=== PATIENT | male | born 1995 | race Two or more races ===

== ENCOUNTER 2019-12-10 09:29 | Day surgery (SDC) | payer OTHER ==
[2019-12-01 17:32] LABS: BASOPHILS # (AUTO) 0.1 X10'3 (0-0.2); BASOPHILS % (AUTO) 1.1 % (0-1); EOSINOPHILS # (AUTO) 0.1 X10'3 (0-0.9); EOSINOPHILS % (AUTO) 1.7 % (0-6); LYMPHOCYTES # (AUTO) 2.3 X10'3 (1.1-4.8); MEAN CORPUSCULAR HGB CONC 34.3 g/dL (33.0-36.5); MEAN CORPUSCULAR VOLUME 84.8 FL (78-98); MEAN PLATELET VOLUME 9.1 FL (7.4-10.4); MONOCYTES # (AUTO) 0.5 X10'3 (0-0.9); NEUTROPHILS # (AUTO) 5.2 X10'3 (1.8-7.7); NEUTROPHILS % (AUTO) 63.2 % (42-75); PRE OP HEMATOCRIT 47.2 % (42.0-52.0); PRE OP HEMOGLOBIN 16.2 g/dL (14.0-17.9); PRE OP PLATELET COUNT 350 X10'3 (140-440); RED BLOOD COUNT 5.57 X10'6 (4.70-6.10); RED CELL DISTRIBUTION WIDTH 13.9 % (11.5-14.5)
[2019-12-01 17:36] LABS: ALBUMIN 4.5 G/DL (3.4-5.0); ALBUMIN/GLOBULIN RATIO 1.2 (1.1-1.5); BLOOD UREA NITROGEN 6 MG/DL (7-18); BUN/CREATININE RATIO 6.4 (5.4-32.0); CALCIUM 9.6 MG/DL (8.5-10.1); CHLORIDE 100 MMOL/L (99-107); CREATININE 0.94 MG/DL (0.60-1.10); PRE OP ANION GAP 11 (8-16); PRE OP BILIRUB, TOTAL 0.7 MG/DL (0.0-1.0); PRE OP SODIUM 138 MMOL/L (135-145); TOTAL CARBON DIOXIDE 26.8 MMOL/L (24-32); TOTAL PROTEIN 8.3 G/DL (6.4-8.2); eGFR > 90 ML/MIN
[2019-12-01 17:37] LABS: PRE OP POTASSIUM 3.9 MMOL/L (3.4-5.1)
[2019-12-01 17:39] LABS: ALKALINE PHOSPHATASE 164 IU/L (46-116)
[2019-12-01 17:40] LABS: PRE OP ALT 345 U/L (30-65); PRE OP AST 151 U/L (10-37); PRE OP GLUCOSE 377 MG/DL (70-104)
[~2019-12-10] VITALS: Ht 188 cm; Wt 131.5 kg
[~2019-12-10 09:29] MED LIST: AMLO2.5T2 PO; LOSA50TA3 PO; METF-900 PO; [UNRECOGNIZED DRUG - CODE] PO; ceFAZolin inj. 3,000 MG in normal saline 100ml IV soln 100 ML IV ONE; famotidine 20mg tablet PO ONE; ringers solution, lacted 1,000 ML IV SCH
--- NOTE | 2019-12-10 11:02 | NUR ---
DR HERNÁNDEZ CANCELLED SURGERY DUE TO A BLOOD GLUCOSE OF 311. REMOVED IV. REVIEWED WRITTEN DISCHARGE INSTRUCTIONS AND PT VERBALIZED UNDERSTANDING.
== END 2019-12-10 11:11 | disposition home or self-care (01) ==
LOC: PAS 09:29
PROVIDERS: ATTEND Orthopaedic Surgery
DX: S83.32XA Tear of articular cartilage of left knee, current, initial encounter (principal); Z53.09 Procedure and treatment not carried out because of other contraindication; M25.562 Pain in left knee; Z01.810 Encounter for preprocedural cardiovascular examination; W22.8XXA Striking against or struck by other objects, initial encounter; Y93.89 Activity, other specified; Y92.89 Other specified places as the place of occurrence of the external cause; Y99.8 Other external cause status
CPT/HCPCS: 36415; 80053; 82948; 85025; 93005; J0690; U0003; J7120

== ENCOUNTER 2020-03-03 06:33 | Day surgery (SDC) | payer OTHER ==
[2020-02-23 13:59] LABS: BASOPHILS # (AUTO) 0.1 X10'3 (0-0.2); BASOPHILS % (AUTO) 1.1 % (0-1); EOSINOPHILS # (AUTO) 0.2 X10'3 (0-0.9); EOSINOPHILS % (AUTO) 2.9 % (0-6); LYMPHOCYTES # (AUTO) 2.6 X10'3 (1.1-4.8); LYMPHOCYTES % (AUTO) 30.4 % (21-51); MEAN CORPUSCULAR HEMOGLOBIN 28.5 PG (27.0-31.0); MEAN CORPUSCULAR HGB CONC 33.7 g/dL (33.0-36.5); MEAN CORPUSCULAR VOLUME 84.4 FL (78-98); MEAN PLATELET VOLUME 8.2 FL (7.4-10.4); MONOCYTES # (AUTO) 0.5 X10'3 (0-0.9); MONOCYTES % (AUTO) 5.8 % (2-12); NEUTROPHILS # (AUTO) 5.1 X10'3 (1.8-7.7); NEUTROPHILS % (AUTO) 59.8 % (42-75); PRE OP HEMATOCRIT 46.6 % (42.0-52.0); PRE OP HEMOGLOBIN 15.7 g/dL (14.0-17.9); PRE OP PLATELET COUNT 331 X10'3 (140-440); RED BLOOD COUNT 5.52 X10'6 (4.70-6.10); RED CELL DISTRIBUTION WIDTH 14.2 % (11.5-14.5)
[2020-02-23 14:17] LABS: ALBUMIN 4.5 G/DL (3.4-5.0); ALBUMIN/GLOBULIN RATIO 1.2 (1.1-1.5); ALKALINE PHOSPHATASE 88 IU/L (46-116); BLOOD UREA NITROGEN 7 MG/DL (7-18); BUN/CREATININE RATIO 8.6 (5.4-32.0); CALCIUM 9.4 MG/DL (8.5-10.1); CHLORIDE 105 MMOL/L (99-107); CREATININE 0.81 MG/DL (0.60-1.10); PRE OP ANION GAP 12 (8-16); PRE OP AST 63 U/L (10-37); PRE OP BILIRUB, TOTAL 0.6 MG/DL (0.0-1.0); PRE OP GLUCOSE 97 MG/DL (70-104); PRE OP POTASSIUM 3.8 MMOL/L (3.4-5.1); PRE OP SODIUM 143 MMOL/L (135-145); TOTAL PROTEIN 8.2 G/DL (6.4-8.2); eGFR > 90 ML/MIN
[2020-02-23 14:22] LABS: HEMOGLOBIN A1C 6.2 % (4.5-6.2)
[2020-02-23 14:23] LABS: PRE OP ALT 151 U/L (30-65)
[2020-03-03] VITALS (10 sets, daily range): BP systolic 99–163; BP diastolic 37–81
[~2020-03-03] VITALS: Ht 188 cm; Wt 132.9 kg
[~2020-03-03 06:33] MED LIST changes: +METF-436 PO; -METF-900 PO; -[UNRECOGNIZED DRUG - CODE] PO
--- NOTE | 2020-03-03 08:00 | NUR ---
PT DENIES ANY COVID SYMPTOMS, NEGATIVE COVID SCREEN ON CHART.
[2020-03-03] MEDS ORDERED: midazolam 2 mg/2 ml injection ONE (08:24)
[2020-03-03] MEDS ORDERED: sevoflurane 250ml liquid IH ONE (08:24)
[2020-03-03] MEDS ORDERED: fentaNYL /PF 50mcg/ml 5ml ampule ONE (08:24)
[2020-03-03] MEDS ORDERED: ondansetron/PF 4mg/2ml inj ONE (08:25)
[2020-03-03] MEDS ORDERED: ROPIVAcaine 0.5% (5mg/ml) 30ml vial ONE (08:25)
[2020-03-03] MEDS ORDERED: propofol inj 20 ML IV ONE (08:25)
[2020-03-03] MEDS ORDERED: dexamethasone sod phosphate 4mg/ml inj. ONE (08:25)
[2020-03-03] MEDS ORDERED: LIDOcaine 2% (20mg/ml) 5ml vial ONE (08:25)
[2020-03-03] MEDS ORDERED: ringers solution, lacted 1,000 ML IV SCH (08:59)
[2020-03-03] MEDS ORDERED: fentaNYL/PF 50MCG/1 ML 2ML syringe IV PRN ×2 (09:00)
[2020-03-03] MEDS ORDERED: morphine 2 MG/ML inj. syringe IV PRN (09:00)
[2020-03-03] MEDS ORDERED: ondansetron/PF 4mg/2ml inj IV PRN (09:00)
[2020-03-03] MEDS ORDERED: labetalol 20mg/4ml (5mg/ml) syringe IV PRN (09:00)
[2020-03-03] MEDS ORDERED: morphine 4 MG/ML inj SYRINge IV PRN (09:00)
[2020-03-03] MEDS ORDERED: hydrALAZINE 20mg/ml inj. IV PRN (09:00)
[2020-03-03] MEDS ORDERED: ketorolac trometh. 30mg/ml inj. ONE (10:13)
[2020-03-03] MEDS ORDERED: morphine 10mg/ml inj. ONE (10:15)
--- NOTE | 2020-03-03 10:46 | NUR ---
Received from OR via [facility] , accompanied by Anesthesiologist JEFF and report given by Anesthesiolgist. PATIENT WITH 20G PIV IN LEFT UE RUNNING LR AT 100. PATIENT WITH 10L MASK ON WITH 98% SATURATIONS. LEFT KNEE IMMOBILIZER PRESENT TO LEFT LE. ISLAND DRESSING ON AND CDI. + DP TO LEFT FOOT WELL CAP REFILL AND IS WARM TO TOUCH. Addendum: 03/03/20 at 1055 by Vernon Luna RN, RN Amended: Links added.
--- NOTE | 2020-03-03 11:56 | NUR ---
PATIENT AND FAMILY AND THEY HAVE VERBALIZED UNDERSTANDING, OPPORTUNITY TO ASK QUESTIONS GIVEN AND PATIENT COMFORTABLE WITH DC. IV TAKEN OUT WITHOUT COMPLICATION. PATIENT HAS MET ALL DC CRITERIA FOR DC HOME. I HAVE REVIEWED D/C INSTRUCTIONS WITH OUT VIA WHEELCHAIR WHERE PATIENT WAS TAKEN HOME WITH ALL BELONGINGS. FAMILY GAVE PATIENT TRANSPORT HOME. MAINTAINED NWB STATUS GETTING FROM WHEELCHAIR TO PERSONAL VEHICLE WHERE HE WAS SECURED IN TO FRONT PASSENGER SEAT. Addendum: 03/03/20 at 1221 by Vernon Lowery - BEATRIZ HENDERSON Amended: Links added.
== END 2020-03-03 11:56 | disposition home or self-care (01) ==
LOC: PAS 06:33
PROVIDERS: ATTEND Orthopaedic Surgery
DX: M22.8X2 Other disorders of patella, left knee (principal); G89.18 Other acute postprocedural pain; I10 Essential (primary) hypertension; E11.9 Type 2 diabetes mellitus without complications; E66.9 Obesity, unspecified; Z68.37 Body mass index [BMI] 37.0-37.9, adult; Z98.890 Other specified postprocedural states; Z79.899 Other long term (current) drug therapy; Z20.828 Contact with and (suspected) exposure to other viral communicable diseases
CPT/HCPCS: 27415; 36415; 64447; 76942; 80053; 82948; 83036; 85025; 87635; A6454; C1713; C9399; J0690; J1100; J1885; J2001; J2250; J2270; J2405; J2704; J3010; J7120; A6258; A7000; J2795